=== PATIENT | male | born 1970 | race Two or more races ===

== ENCOUNTER 2017-12-15 12:43 | Emergency (ER) | payer MEDICAID ==
[~2017-12-15] VITALS: Ht 175.3 cm; Wt 90.7 kg
[2017-12-15 13:02] VITALS: BP 138/85
[2017-12-15] MEDS ORDERED: Fluorescein Strips RIGHT EYE ONE (13:15)
[2017-12-15] MEDS ORDERED: Tetracaine 0.5% Opth 4ml Soln RIGHT EYE ONE (13:15)
[2017-12-15] MEDS ORDERED: Fluorescein Strips ONE (13:17)
[2017-12-15] MEDS ORDERED: Tetracaine 0.5% Opth 4ml Soln ONE (13:17)
[2017-12-15] MEDS ORDERED: Morgan Lens TOPIC ONE (14:00)
[2017-12-15] MEDS ORDERED: Tetanus/Diptheria/Pertussis Vaccine 0.5ml Syr IM ONE (14:30)
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
[2017-12-15] MEDS ORDERED: TYLENOL EXTRA500 MG ORAL ×2 (14:59→15:00)
[2017-12-15] MEDS ORDERED: OCUFLOX5 ML OP (14:59)
[2017-12-15 15:24] VITALS: BP 138/85
== END 2017-12-15 15:25 | disposition home or self-care (01) ==
LOC: EMR 13:29 → EDBD 13:29 → EMR 15:25
DX: T26.61XA Corrosion of cornea and conjunctival sac, right eye, initial encounter (principal); S05.01XA Injury of conjunctiva and corneal abrasion without foreign body, right eye, initial encounter; Y92.9 Unspecified place or not applicable; Z23 Encounter for immunization
CPT/HCPCS: 90471; 90715; 99283